=== PATIENT | male | born 1950 | race Caucasian/White ===

== ENCOUNTER 2023-10-13 08:45 | Emergency (ER) | payer MEDICARE, OTHER, SELFPAY ==
[2023-10-13 08:48] VITALS: BP 133/77
--- NOTE | 2023-10-13 09:00 | ED.GENMED ---
History of Present Illness
General
Chief Complaint: Dizziness
Source: patient and spouse
Time Seen by Provider: 10/13/23 08:54
Travel History
Have you had any contact with someone who has COVID-19?: No
Do you have any symptoms of coronavirus? Fever > 100 degrees, chills, cough, shortness of breath, sore throat, loss of taste or smell, muscle aches, or headache?: No
History of Present Illness
History of Present Illness:
72-year-old male presents emergency room complaining of severe vertigo, nausea vomiting. Symptoms began shortly after bending over to throw something in a trash can. Shortly thereafter he began feeling the sense of movement like he was on a
[id number] and developed severe nausea. He denies headache. Denies any focal weakness numbness or tingling. Patient recalls having a similar episode years ago.
Past History
Past History
ED Past Medical History: GERD, HTN, Hypercholesterolemia and Other (BPH, ED, sciatica)
ED Past Surgical History: Other (hernia repair)
Social History
Tobacco: Non-smoker
Alcohol: Occasional
Drug: None
Personal:
Living: with family
Phy Exam
Physical Exam
Physical Exam:
General: Awake, Alert, Oriented X3. No acute distress.
Vitals: unremarkable
Head: Atraumatic
Eyes: Pupils equal, EOMI
Throat: Airway intact, no exudates
Neck: Trachea midline
Lungs: Clear and equal b/l
Heart: Regular rate, no murmurs
Abd: Soft, Nontender, No pulsatile mass
Neuro: Cranial nerves intact, muscle strength equal bilaterally, cerebellar exam normal
Skin: Warm, dry, no rash
Extremities: pulses equal b/l, no edema
Course
Orders/Labs/Results
Orders:
Orders
10/13/23 08:59
Ondansetron Injectable [Zofran] 4 mg IV NOW STA
diazePAM [Valium Injection] 5 mg IV NOW STA
10/13/23 09:54
Basic Metabolic Panel Urgent
Complete Blood Count/No Diff Urgent
Abnormal Lab Results
10/13/23
09:54
RBC 4.52 L 10^6/uL
(4.70-6.10)
Hct 38.8 L %
(39.0-52.0)
Sodium 133 L mmol/L
(135-145)
Glucose 143 H mg/dl
(70-99)
10/13/23 09:54
10/13/23 09:54
Vital Signs
Initial and Last Documented VS:
Initial Vital Signs
Temp Pulse Resp BP Pulse Ox
98.2 F 63 16 133/77 98
10/13/23 08:48 10/13/23 08:48 10/13/23 08:48 10/13/23 08:48 10/13/23 08:48
Last Documented Vital Signs
Temp Pulse Resp BP Pulse Ox
98.2 F 54 12 118/68 95
10/13/23 08:48 10/13/23 10:45 10/13/23 10:45 10/13/23 10:06 10/13/23 10:45
MDM/Problems Addressed
Differential Diagnosis Includes:
Benign positional vertigo, labyrinthitis, CVA
MDM/Problems Addressed:
Patient had sudden onset of symptoms bending over. Symptoms were quite severe when present treatment. He feels back to baseline completely. He is ambulatory without difficulty. He had no focal neurologic findings associate with the symptoms.
The overall presentation seems highly consistent with benign paroxysmal positional vertigo. Patient stable for discharge home and follow-up with physical therapy as an outpatient as well as his primary care provider.
*Pulse Oximetry
Patient hypoxic: no
*Critical Care Note
Total Time (30-74mins, 75-104mins- exclusive of procedures): Not Applicable
ED Attending Note
-
Portions of this chart may have been created with voice recognition software.� Occasional wrong word or��sound alike� substitutions may have occurred due to the inherent limitations of voice recognition software.
Discharge Plan
Departure
Patient Disposition: Home (Routine Discharge)
Date of Disposition: 10/13/23
Time of Disposition: 10:56
Patient with high blood pressure during this ER visit?: No
Condition: Good
Discharge Problem:
Benign paroxysmal positional vertigo
Instructions: Vertigo (a Type of Dizziness) (DC), Vestibular Exercises
Prescriptions:
New
ondansetron 4 mg tablet,disintegrating
4 mg PO TID PRN (Reason: nausea and vomiting) Qty: 14 0RF
No Action
hydrochlorothiazide 12.5 MG capsule
25 mg PO DAILY
tadalafil [Cialis] 5 MG tablet
5 mg PO DAILY
losartan 50 mg Tablet
50 mg PO DAILY
Referrals:
Spencer Lyle MD [Family Provider] -
Activity Restrictions/Additional Instructions:
You can purchase meclizine over the counter. You can take 25mg every 8 hours for vertigo should your symptoms return.
Interventions
Interventions:
*Risk Screen - Suicide Last Done: 10/13/23 08:59
*General Assessment Last Done: 10/13/23 08:59
*Neglect/Abuse Screening Last Done: 10/13/23 08:59
ED- Fall Risk Assessment Last Done: 10/13/23 08:59
*ED COVID-19 Vaccine History Last Done: 10/13/23 08:48
*Nursing Disposition Last Done: 10/13/23 11:18
ED- Neurological Assessment Last Done: 10/13/23 08:59
Discharge Date and Time
Discharge Date/Time: 10/13/23 11:19
[2023-10-13 09:01] VITALS: BMI 24.5
[2023-10-13] MEDS: VALIUM INJECTION 5 MG IV (09:07)
[2023-10-13] MEDS: ZOFRAN 4 MG IV (09:08)
[2023-10-13 10:04] LABS: Hematocrit 38.8 % (39.0-52.0); Hemoglobin 13.6 g/dL (13.0-18.0); Mean Corp Hgb Conc. 35.1 g/dL (33.0-37.0); Mean Corpuscular Hgb 30.1 pg (27.0-31.0); Mean Corpuscular Volume 85.8 fL (80.0-94.0); Mean Platelet Volume 10.2 fL (7.4-10.4); Platelet Count 243 10^3/uL (130-400); Red Blood Cell Count 4.52 10^6/uL (4.70-6.10); Red Cell Dist. Width 13.8 % (11.5-14.5); White Blood Cell Count 9.7 10^3/uL (4.8-10.8)
[2023-10-13 10:06] VITALS: BP 118/68
[2023-10-13 10:21] LABS: Blood Urea Nitrogen 20 mg/dl (9-20); Calcium 9.2 mg/dl (8.4-10.2); Carbon Dioxide 23 mmol/L (22-30); Chloride 101 mmol/L (98-107); Estimated Creatinine Clearance 74 ml/min; Glucose 143 mg/dl (70-99); Potassium 3.5 mmol/L (3.5-5.1); Sodium 133 mmol/L (135-145); eGFR > 60.00
== END 2023-10-13 11:19 | disposition home or self-care (01) ==
LOC: EMR 08:45
PROVIDERS: EMERGENCY PHYSICIAN Emergency Medicine; FAMILY PHYSICIAN Internal Medicine
DX: H81.10 Benign paroxysmal vertigo, unspecified ear (principal)
CPT/HCPCS: 99284; 96374; 96375; 80048; 85027